=== PATIENT | male | born 1960 | race Caucasian/White ===

== ENCOUNTER 2022-08-15 08:09 | Emergency (ER) | payer MEDICAID ==
[~2022-08-15] VITALS: Ht 177.8 cm; Wt 90.7 kg
--- OUTSIDE RECORDS SUMMARY | 2022-08-15 08:17 | XMS ---
PreManage Notification: LISBETH EUBANKS [employer] Events No recent Security Events currently on file CRITERIA MET - [facility] - 2 Visits in 30 Days CARE PROVIDERS SOREN DHALIWAL [facility] Current PHONE: Unknown Rose has no Care Guidelines for this patient. Yahir VISIT COUNT (12 MO.) 2 [facility] TOTAL 2 NOTE: Visits indicate total known visits. ED/UCC VISIT TRACKING (12 MO.) 08/15/2022 08:10 [facility] TYPE: Emergency COMPLAINT: - MEDICAL CLEARANCE 08/14/2022 08:37 [facility] TYPE: Emergency COMPLAINT: - MEDICAL CLEARANCE INPATIENT VISIT TRACKING (12 MO.) No inpatient visits to display in this time frame [email or web address]
== END 2022-08-15 11:15 | disposition home or self-care (01) ==
LOC: ED 08:09
DX: R45.851 Suicidal ideations (principal); Z88.1 Allergy status to other antibiotic agents
CPT/HCPCS: 99284